=== PATIENT | male | born 2000 | race Caucasian/White ===

== ENCOUNTER 2020-05-11 17:38 | Emergency (ER) | payer OTHER ==
[~2020-05-11] VITALS: Ht 188 cm; Wt 96.0 kg
[2020-05-11 19:22] VITALS: BP 133/75
--- NOTE | 2020-05-12 04:33 | REP ---
RIGHT HAND, COMPLETE: 05/11/2020. CLINICAL HISTORY: Trauma. FINDINGS: There is a distal 4th metacarpal diametaphyseal fracture with dorsal apex angulation. No subluxation or dislocation of the MCP joint. The proximal metacarpal intact. All other bones of the hand and wrist intact. IMPRESSION: 1. Distal 5th metacarpal diametaphyseal fracture with apex dorsal angulation. Electronically Signed by Tino Koo MD 05/12/2020 08:57 A
== END 2020-05-11 19:40 | disposition home or self-care (01) ==
LOC: M ED 17:38
DX: S62.306A Unspecified fracture of fifth metacarpal bone, right hand, initial encounter for closed fracture (principal); W50.0XXA Accidental hit or strike by another person, initial encounter; Y92.099 Unspecified place in other non-institutional residence as the place of occurrence of the external cause; Y93.9 Activity, unspecified; Y99.9 Unspecified external cause status

== ENCOUNTER 2021-04-05 15:01 | Emergency (ER) | payer OTHER ==
[~2021-04-05] VITALS: Ht 188 cm; Wt 99.2 kg
[2021-04-05] MEDS: LIDOCAINE 1% MDV 20ML VIAL SC ONE (17:34)
[2021-04-05] MEDS ORDERED: CEPH500C PO (18:04)
[2021-04-05] MEDS: CEPHALEXIN 500 MG CAP PO ONE (18:14)
[2021-04-05 18:17] VITALS: BP 176/91
== END 2021-04-05 18:18 | disposition home or self-care (01) ==
LOC: M ED 15:01
DX: S51.812A Laceration without foreign body of left forearm, initial encounter (principal); W22.8XXA Striking against or struck by other objects, initial encounter; Y92.89 Other specified places as the place of occurrence of the external cause; Y93.89 Activity, other specified; Y99.8 Other external cause status

== ENCOUNTER 2022-01-16 03:48 | Emergency (ER) | payer OTHER ==
[~2022-01-16] VITALS: Ht 188 cm; Wt 97.7 kg
[~2022-01-16 03:48] MED LIST: CEPH500C PO
[2022-01-16 04:31] LABS: HEMATOCRIT 47.5 % (42.0-52.0); HEMOGLOBIN 16.4 g/dl (13.5-17.5); MEAN CORPUSCULAR HEMOGLOBIN 31.2 pg (27.0-33.0); MEAN CORPUSCULAR HGB CONC 34.5 g/dl (32.0-36.5); MEAN CORPUSCULAR VOLUME 90.5 fl (80.0-96.0); PLATELET COUNT, AUTOMATED 212 10^3/uL (150-450); RED BLOOD COUNT 5.25 10^6/uL (4.30-6.10); WHITE BLOOD COUNT 7.9 10^3/uL (4.0-10.0)
[2022-01-16 04:55] LABS: ALBUMIN 4.2 GM/DL (3.2-5.2); ALT/SGPT 78 U/L (12-78); BILIRUBIN,DIRECT 0.3 MG/DL (0.0-0.2); BILIRUBIN,TOTAL 1.1 MG/DL (0.2-1.0); BLOOD UREA NITROGEN 11 MG/DL (7-18); CARBON DIOXIDE LEVEL 27 MEQ/L (21-32); CHLORIDE LEVEL 109 MEQ/L (98-107); CREATININE FOR GFR 1.05 MG/DL (0.70-1.30); ETHYL ALCOHOL (ETHANOL) 0.277 % (0.000-0.010); GLOMERULAR FILTRATION RATE > 60.0 (>60); GLUCOSE, FASTING 113 MG/DL (70-100); POTASSIUM SERUM 4.6 MEQ/L (3.5-5.1); SALICYLATE LEVEL < 1.7 MG/DL (5.0-30.0); SODIUM LEVEL 143 MEQ/L (136-145); TOTAL PROTEIN 7.9 GM/DL (6.4-8.2)
[2022-01-16 04:56] LABS: ACETAMINOPHEN LEVEL < 2.0 UG/ML (10.0-30.0)
[2022-01-16 05:55] LABS: RSV AMPLIFICATION NEGATIVE (NEGATIVE)
[2022-01-16 09:38] VITALS: BP 139/82
[2022-01-16 09:51] LABS: AMPHETAMINES LEVEL URINE NEGATIVE (NEGATIVE); BARBITURATES URINE NEGATIVE (NEGATIVE); BENZODIAZEPINES URINE NEGATIVE (NEGATIVE); CANNABINOIDS URINE NEGATIVE (NEGATIVE); COCAINE METABOLITE URINE NEGATIVE (NEGATIVE); METHADONE URINE NEGATIVE (NEGATIVE); OPIATES URINE NEGATIVE (NEGATIVE); PHENCYCLIDINE URINE NEGATIVE (NEGATIVE)
[2022-01-16] MEDS ORDERED: HOME MED LIST COMPLETE! XX SCH (12:30)
== END 2022-01-16 16:23 | disposition home or self-care (01) ==
LOC: M ED 03:48
DX: F43.0 Acute stress reaction (principal); F17.290 Nicotine dependence, other tobacco product, uncomplicated; F10.10 Alcohol abuse, uncomplicated